=== PATIENT | male | born 1985 | race Two or more races ===

== ENCOUNTER 2016-08-29 13:40 | Emergency (ER) ==
--- NOTE | 2016-08-29 15:15 | ER Document Report ---
Addendum entered and electronically signed by BRIAN SMITH NP 08/29/16 15:16 : Course - Re-evaluation Re-evalutation: 08/29/16 15:16 I have greeted and performed a rapid initial assessment of this patient. A comprehensive ED assessment, evaluation of the patient, analysis of test results , and completion of the medical decision making process will be contacted by additional ED providers. - Vital Signs Vital signs: Temp Pulse Resp BP Pulse Ox 98.0 F 74 14 131/62 H 98 08/29/16 14:45 08/29/16 14:45 08/29/16 14:45 08/29/16 14:45 08/29/16 14:45 Original Note: ED Medical Screen (RME) - General Chief Complaint: Penile Pain Stated Complaint: PENAL PAIN, PAINFUL URINATION Time seen by provider: 15:14 Mode of Arrival: Ambulatory Information source: Patient Notes: 31-year-old male having intercourse and the condom broke. He started having to the penis discomfort when he urinates or several days. No rash or swelling. No discharge Physical Exam - Vital signs Vitals: Temp Pulse Resp BP Pulse Ox 98.0 F 74 14 131/62 H 98 08/29/16 14:45 08/29/16 14:45 08/29/16 14:45 08/29/16 14:45 08/29/16 14:45 Course - Vital Signs Vital signs: Temp Pulse Resp BP Pulse Ox 98.0 F 74 14 131/62 H 98 08/29/16 14:45 08/29/16 14:45 08/29/16 14:45 08/29/16 14:45 08/29/16 14:45
[2016-08-29 17:39] LABS: CHLAM PCR NOT DETECTED (NOT DETECT)
== END 2016-08-29 17:25 | disposition left against medical advice (07) ==
LOC: ER 13:40
DX: Z53.9 Procedure and treatment not carried out, unspecified reason (principal); N48.89 Other specified disorders of penis; R30.9 Painful micturition, unspecified
CPT/HCPCS: 87491; 87591; 99281

== ENCOUNTER 2016-09-05 12:37 | Emergency (ER) | payer SELFPAY ==
[2016-09-05 12:42] VITALS: BP 128/72
--- NOTE | 2016-09-05 12:43 | ER Document Report ---
ED Medical Screen (RME) - General Stated Complaint: PELVIC DISCOMFORT Mode of Arrival: Ambulatory Information source: Patient Notes: Patient complains of pain to his penis for the past several weeks. Patient was here about a week ago for the same complaint. Patient denies any scrotal pain. Patient denies any abdominal pain. Patient complains of dysuria. I have greeted and performed a rapid initial assessment of this patient. A comprehensive ED assessment and evaluation of the patient, analysis of test results and completion of the medical decision making process will be conducted by additional ED providers. TRAVEL OUTSIDE OF THE [place] IN LAST 30 DAYS: No - Related Data Allergies/Adverse Reactions: No Known Allergies Allergy (Verified 09/05/16 12:43) Past Medical History Renal/ Medical History: Denies: Hx Peritoneal Dialysis Physical Exam - Vital signs Vitals: Temp Pulse Resp BP Pulse Ox 97.8 F 89 16 128/72 H 97 09/05/16 12:41 09/05/16 12:41 09/05/16 12:41 09/05/16 12:41 09/05/16 12:41 - General General appearance: Appears well, Alert In distress: None Course - Vital Signs Vital signs: Temp Pulse Resp BP Pulse Ox 97.8 F 89 16 128/72 H 97 09/05/16 12:41 09/05/16 12:41 09/05/16 12:41 09/05/16 12:41 09/05/16 12:41
[2016-09-05 13:22] LABS: APPEARANCE,URINE CLEAR; BILIRUBIN,URINE NEGATIVE (NEGATIVE); GLUCOSE, URINE NEGATIVE (NEGATIVE); KETONES,URINE NEGATIVE (NEGATIVE); LEUKOCYTE ESTERASE,URINE NEGATIVE (NEGATIVE); NITRITE,URINE NEGATIVE (NEGATIVE); PROTEIN,URINE NEGATIVE (NEGATIVE); URINE SPECIFIC GRAVITY 1.012; UROBILINOGEN,URINE NEGATIVE mg/dL (<2.0)
[2016-09-05 15:14] LABS: CHLAM PCR NOT DETECTED (NOT DETECT)
[2016-09-05] MEDS ORDERED: AZITHROMYCIN 250 MG TABLET PO ONE (19:27)
[2016-09-05] MEDS ORDERED: LIDOCAINE 1% INJ-PF (10 MG/ML) 30 ML SDV INFIL ONE (19:27)
[2016-09-05] MEDS ORDERED: CEFTRIAXONE INJ 250 MG VIAL IM ONE (19:27)
--- NOTE | 2016-09-05 19:28 | ER Document Report ---
ED General - General Chief Complaint: STD Exposure Stated Complaint: PELVIC DISCOMFORT Mode of Arrival: Ambulatory Notes: Patient is a 31-year-old male who presents with concerns of possible STD exposure. States that he was having sex approximately one week ago and his condom broke. States that since that time he has had a constant urethral burning worsened by urination. Pain is mild and constant. Nothing improves the pain. States he's had similar symptoms in the past and he had sexual transmitted infections and is requesting empiric treatment. Denies any testicular pain, penile lesions, abdominal pain, vomiting or diarrhea. No fever. He has not seen his primary care physician regarding today's concerns. TRAVEL OUTSIDE OF THE [place] IN LAST 30 DAYS: No - Related Data Allergies/Adverse Reactions: No Known Allergies Allergy (Verified 09/05/16 12:43) Past Medical History - General Information source: Patient - Social History Smoking Status: Never Smoker Chew tobacco use (# tins/day): No Frequency of alcohol use: None Drug Abuse: None Lives with: Family Family History: Reviewed & Not Pertinent Patient has suicidal ideation: No Patient has homicidal ideation: No Renal/ Medical History: Denies: Hx Peritoneal Dialysis Review of Systems - Review of Systems Notes: Constitutional: Negative for fever. HENT: Negative for sore throat. Eyes: Negative for visual changes. Cardiovascular: Negative for chest pain. Respiratory: Negative for shortness of breath. Gastrointestinal: Negative for abdominal pain, vomiting or diarrhea. Genitourinary: Positive for dysuria. Musculoskeletal: Negative for back pain. Skin: Negative for rash. Neurological: Negative for headaches, weakness or numbness. 10 point ROS negative except as marked above and in HPI. Physical Exam - Vital signs Vitals: Temp Pulse Resp BP Pulse Ox 97.8 F 89 16 128/72 H 97 09/05/16 12:41 09/05/16 12:41 09/05/16 12:41 09/05/16 12:41 09/05/16 12:41 Interpretation: Normal Notes: PHYSICAL EXAMINATION: GENERAL: Well-appearing, well-nourished and in no acute distress. HEAD: Atraumatic, normocephalic. EYES: Pupils equal round and reactive to light, extraocular movements intact, sclera anicteric, conjunctiva are normal. ENT: nares patent, oropharynx clear without exudates. Moist mucous membranes. NECK: Normal range of motion, supple without lymphadenopathy LUNGS: Breath sounds clear to auscultation bilaterally and equal. No wheezes rales or rhonchi. HEART: Regular rate and rhythm without murmurs ABDOMEN: Soft, nontender, normoactive bowel sounds. No guarding, no rebound. No masses appreciated. : No penile lesions or discharge. Positive cremasteric reflex bilaterally. No testicular epididymal tenderness EXTREMITIES: Normal range of motion, no pitting or edema. No cyanosis. NEUROLOGICAL: No focal neurological deficits. Moves all extremities spontaneously and on command. PSYCH: Normal mood, normal affect. SKIN: Warm, Dry, normal turgor, no rashes or lesions noted. Course - Re-evaluation Re-evalutation: 09/05/16 19:28 Patient presents with dysuria, penile pain, no findings on exam. Gonorrhea and chlamydia testing negative but given persistence of symptoms and patient request for emperic treatment, ceftriaxone and azithromycin have been given. Safe sex practices reviewed. Exam otherwise unremarkable. At this time will discharge with return precautions and follow-up recommendations. Verbal discharge instructions given a the bedside and opportunity for questions given. Medication warnings reviewed. Patient is in agreement with this plan and has verbalized understanding of return precautions and the need for primary care follow-up in the next 24-72 hours. - Vital Signs Vital signs: Temp Pulse Resp BP Pulse Ox 97.8 F 89 16 128/72 H 97 09/05/16 12:41 09/05/16 12:41 09/05/16 12:41 09/05/16 12:41 09/05/16 12:41 - Laboratory Laboratory results interpreted by me: 09/05/16 12:50 Urine Ascorbic Acid 40 H Discharge - Discharge Clinical Impression: STI (sexually transmitted infection) Condition: Good Disposition: HOME, SELF-CARE Additional Instructions: You need to use protection every time you have sex. Failure to do so can result in transmission of infections or unintended . You have been treated for an sexually transmitted infection (STI) today. All of your partners should be tested and treated as they are also likely to be infected. Please return if you develop abdominal pain, fever, persistent vomiting, or any other symptoms that are concerning to you. Please follow-up at the local health department for additional STI testing. Address: [address] [place] [address] Hours: Mon-Wed 8am-4pm 12p-4p Tue 8a-4p
== END 2016-09-05 19:55 | disposition home or self-care (01) ==
LOC: ER 12:37
DX: A64 Unspecified sexually transmitted disease (principal)
CPT/HCPCS: 99283; 96372; 81001; 87491; 87591; J3490; J0696

== ENCOUNTER 2016-09-25 11:41 | Emergency (ER) | payer SELFPAY ==
--- NOTE | 2016-09-25 11:47 | ER Document Report ---
ED Medical Screen (RME) - General Stated Complaint: PAIN IN GROIN AREA Mode of Arrival: Ambulatory Information source: Patient TRAVEL OUTSIDE OF THE [place] IN LAST 30 DAYS: No - Related Data Allergies/Adverse Reactions: No Known Allergies Allergy (Verified 09/05/16 12:43) Past Medical History Renal/ Medical History: Denies: Hx Peritoneal Dialysis
[2016-09-25 11:49] VITALS: BP 116/72
--- NOTE | 2016-09-25 11:49 | ER Document Report ---
ED Medical Screen (RME) - General Stated Complaint: PAIN IN GROIN AREA Mode of Arrival: Ambulatory Information source: Patient Notes: Patient presents with reports of groin pain. Not specific where the pain is. Patient reports it only hurts when he thinks about it. Denies pain with void. Denies other symptoms such as vomiting diarrhea. Has been here several times for same complaint. I have greeted and performed a rapid initial assessment of this patient. A comprehensive ED assessment and evaluation of the patient, analysis of test results and completion of the medical decision making process will be conducted by additional ED providers. TRAVEL OUTSIDE OF THE [place] IN LAST 30 DAYS: No - Related Data Allergies/Adverse Reactions: No Known Allergies Allergy (Verified 09/05/16 12:43) Past Medical History Renal/ Medical History: Denies: Hx Peritoneal Dialysis
[2016-09-25 12:34] LABS: APPEARANCE,URINE CLEAR; BILIRUBIN,URINE NEGATIVE (NEGATIVE); GLUCOSE, URINE NEGATIVE (NEGATIVE); KETONES,URINE NEGATIVE (NEGATIVE); LEUKOCYTE ESTERASE,URINE NEGATIVE (NEGATIVE); NITRITE,URINE NEGATIVE (NEGATIVE); PROTEIN,URINE NEGATIVE (NEGATIVE); URINE SPECIFIC GRAVITY 1.008; UROBILINOGEN,URINE NEGATIVE mg/dL (<2.0)
[2016-09-25 13:50] LABS: CHLAM PCR NOT DETECTED (NOT DETECT)
[2016-09-25] MEDS ORDERED: METRONIDAZOLE 500 MG TABLET PO ONE (14:06)
--- NOTE | 2016-09-25 14:56 | ER Document Report ---
ED GI/ - General Chief Complaint: Groin Pain Stated Complaint: PAIN IN GROIN AREA Mode of Arrival: Ambulatory Information source: Patient Notes: 31 y/o M presents to ED c/o intermittently persistent dysuria and urethral burning/itching feeling for approximately the last month. Pt reports symptoms began several days shortly after condom broke during intercourse with female partner. was evaluated in the Emergency Department approximately 3 weeks ago and treated with dose of Azithromycin and Rocephin but states symptoms are persistent. has not been sexually active since being treated. Denies fever, hematuria, testicular pain or swelling, or penile discharge. TRAVEL OUTSIDE OF THE [place] IN LAST 30 DAYS: No - HPI Patient complains to provider of: Dysuria Timing/Duration: Intermittent, Persistent Quality of pain: Burning Severity at maximum: Moderate Severity in ED: Mild Pain Level: 2 Similar symptoms previously: Yes Recently seen / treated by doctor: Yes - Related Data Allergies/Adverse Reactions: No Known Allergies Allergy (Verified 09/25/16 11:52) Past Medical History - General Information source: Patient - Social History Smoking Status: Never Smoker Frequency of alcohol use: None Drug Abuse: None Lives with: Family Family History: Reviewed & Not Pertinent Patient has suicidal ideation: No Patient has homicidal ideation: No - Medical History Medical History: Negative Renal/ Medical History: Denies: Hx Peritoneal Dialysis Surgical Hx: Negative - Immunizations Hx Diphtheria, Pertussis, Tetanus Vaccination: Yes Review of Systems - Review of Systems Constitutional: No symptoms reported EENT: No symptoms reported Cardiovascular: No symptoms reported Respiratory: No symptoms reported Gastrointestinal: No symptoms reported Genitourinary: See HPI Male Genitourinary: See HPI Musculoskeletal: No symptoms reported Skin: No symptoms reported Hematologic/Lymphatic: No symptoms reported Neurological/Psychological: No symptoms reported -: Yes All other systems reviewed and negative Physical Exam - Vital signs Vitals: Temp Pulse Resp BP Pulse Ox 97.4 F 74 20 116/72 99 09/25/16 11:48 09/25/16 11:48 09/25/16 11:48 09/25/16 11:48 09/25/16 11:48 - General General appearance: Appears well, Alert In distress: None - HEENT Head: Normocephalic, Atraumatic Eyes: Normal Pupils: PERRL Mouth/Lips: Normal Mucous membranes: Normal, Moist Pharynx: Normal Neck: Normal. No: Anterior cervical chain, Posterior cervical chain, Lymphadenopathy, Meningismus, Subcutaneous emphysema - Respiratory Respiratory status: No respiratory distress Chest status: Nontender Breath sounds: Normal Chest palpation: Normal - Cardiovascular Rhythm: Regular Heart sounds: Normal auscultation Murmur: No Pulses: Normal: Radial Normal capillary refill: Yes - Abdominal Inspection: Normal Distension: No distension Bowel sounds: Normal Tenderness: Nontender Organomegaly: No organomegaly - Genitourinary Inspection: Normal. No: Blood at meatus, Penile discharge Tenderness: Nontender. No: Lesions, Testicle tender, Epididymis tender Cremasteric reflex: Normal Scrotum: Normal. No: Swelling, Redness, Hot to touch - Back Back: Normal, Nontender Course - Re-evaluation Re-evalutation: 09/25/16 14:45 Patient hemodynamically stable, in no distress, afebrile. UA and Chlamydia/ gonorrhea screen negative. Urine culture obtained. Will treat for possible Trichomonas due to reported symptoms and negative Chlamydia/gonorrhea screen. Patient appears stable for discharge and agrees with home care, follow-up, and ED return precautions. - Vital Signs Vital signs: Temp Pulse Resp BP Pulse Ox 97.4 F 74 20 116/72 99 09/25/16 11:48 09/25/16 11:48 09/25/16 11:48 09/25/16 11:48 09/25/16 11:48 Discharge - Discharge Clinical Impression: Urethritis, nonspecific Condition: Stable Disposition: HOME, SELF-CARE Instructions: Urethritis (OM), Trichomonas Infection (OM), Metronidazole (OM ) Additional Instructions: You have been treated with Metronidazole for urethritis due to possible Trichomonas as your chlamydia and gonorrhea test was negative. Abstain from sexual intercourse for the next week. Make sure your sexual partner (s) is tested/treated as well. The contact information for the local Urology clinic has been provided in case your symptoms persist. Follow-up with you primary care provider this week. Return to the Emergency Department for any worsening symptoms or concerns. Referrals: [facility] [Provider Group] - [facility] - Follow up in 1 week
== END 2016-09-25 15:00 | disposition home or self-care (01) ==
LOC: ER 11:41
DX: N34.2 Other urethritis (principal); R30.0 Dysuria
CPT/HCPCS: 81001; 87086; 87491; 87591; 99283